=== PATIENT | male | born 1975 | race Two or more races ===

== ENCOUNTER 2016-11-26 08:49 | Emergency (ER) | payer MEDICAID ==
[~2016-11-26] VITALS: Ht 180.3 cm; Wt 99.3 kg
[2016-11-26] MEDS ORDERED: KETOROLAC TROMETH 30 MG/ML 1ML VIAL IV ONE (09:30)
[2016-11-26] MEDS ORDERED: SODIUM CHLORIDE 0.9% 1,000 ML IVB ONE (09:30)
[2016-11-26] MEDS ORDERED: PROMETHAZINE HCL 25 MG/ML 1ML IV PRN (09:30)
[2016-11-26 09:39] LABS: Basophils # (auto) 0 uL; Basophils % (auto) 0.3 % (0.0-2.0); CONDITION Y; Eosinophils # (auto) 0.2 uL; Eosinophils % (auto) 1.6 % (0.0-7.0); Hematocrit 45.4 % (41.0-53.0); Hemoglobin 15.6 g/dL (13.5-17.5); Lymphocytes # (auto) 1.3 uL; Lymphocytes % (auto) 11.6 % (10.0-50.0); Mean Corpuscular Hemoglobin 32.8 pg (28.0-32.0); Mean Corpuscular Hgb Conc. 34.4 g/dL (32.0-36.0); Mean Corpuscular Volume 95.1 fL (80.0-100.0); Monocytes # (auto) 0.8 uL; Monocytes % (auto) 6.6 % (0.0-12.0); Neutrophils # (auto) 9.3 uL; Neutrophils % (auto) 79.9 % (37.0-80.0); Platelet Count (auto) 283 10^3/uL (140-450); Red Cell Distribution Width 13.3 % (11.6-16.0); White Blood Cell 11.6 10^3/uL (4.4-10.8)
[2016-11-26 09:56] LABS: Urine Bilirubin Negative (Negative); Urine Blood Negative /uL (Negative); Urine Color Yellow (Yellow); Urine Glucose Normal (Normal); Urine Ketone TRACE (Negative); Urine Mucus MODERATE (None Seen); Urine Nitrite Negative (Negative); Urine RBC <1 /hpf (0 - 3)
[2016-11-26 10:06] LABS: Albumin 3.7 g/dL (3.4-5.0); BUN/Creatinine Ratio 13.3; Calcium 8.9 mg/dL (8.5-10.1); Magnesium 2.2 mg/dL (1.6-2.6); Potassium 3.5 mmol/L (3.5-5.1)
[2016-11-26 10:09] LABS: Bilirubin, Total 0.8 mg/dL (0.2-1.0); Total Protein 7.4 g/dL (6.4-8.2)
[2016-11-26 10:24] VITALS: BP 156/95
== END 2016-11-26 12:19 | disposition home or self-care (01) ==
LOC: ER 08:49
DX: K80.50 Calculus of bile duct without cholangitis or cholecystitis without obstruction (principal); R73.9 Hyperglycemia, unspecified; I10 Essential (primary) hypertension; E78.5 Hyperlipidemia, unspecified
CPT/HCPCS: 36415; 71020; 74176; 80053; 81001; 83690; 83735; 85025; 94761; 96361; 96374; 96375; 99285; J1885; J2550; J7030

== ENCOUNTER 2016-12-12 19:07 | Emergency (ER) | payer MEDICAID ==
[~2016-12-12] VITALS: Ht 172.7 cm; Wt 95.3 kg
[2016-12-12 23:05] VITALS: BP 136/92
== END 2016-12-12 23:02 | disposition home or self-care (01) ==
LOC: EDBD 19:07 → ER 19:07
DX: S80.01XA Contusion of right knee, initial encounter (principal); M79.1 Myalgia; E78.5 Hyperlipidemia, unspecified; I10 Essential (primary) hypertension; V49.49XA Driver injured in collision with other motor vehicles in traffic accident, initial encounter; Y93.89 Activity, other specified; Y99.8 Other external cause status; Y92.410 Unspecified street and highway as the place of occurrence of the external cause
CPT/HCPCS: 73562

== ENCOUNTER 2017-05-11 10:24 | Emergency (ER) | payer MEDICAID ==
[~2017-05-11] VITALS: Ht 180.3 cm; Wt 104.3 kg
[2017-05-11 11:03] LABS: Basophils # (auto) 0 uL; Basophils % (auto) 0.5 % (0.0-2.0); Eosinophils # (auto) 0.2 uL; Eosinophils % (auto) 2.4 % (0.0-7.0); Hematocrit 48.8 % (41.0-53.0); Hemoglobin 16.5 g/dL (13.5-17.5); Lymphocytes # (auto) 1.6 uL; Lymphocytes % (auto) 20.8 % (10.0-50.0); Mean Corpuscular Hemoglobin 32.3 pg (28.0-32.0); Mean Corpuscular Hgb Conc. 33.8 g/dL (32.0-36.0); Mean Corpuscular Volume 95.4 fL (80.0-100.0); Monocytes # (auto) 0.6 uL; Monocytes % (auto) 7.9 % (0.0-12.0); Neutrophils # (auto) 5.1 uL; Neutrophils % (auto) 68.4 % (37.0-80.0); Platelet Count (auto) 249 10^3/uL (140-450); Red Blood Cells 5.11 10^6/uL (4.5-5.90); Red Cell Distribution Width 13.6 % (11.8-14.3); White Blood Cell 7.4 10^3/uL (4.4-10.8)
[2017-05-11] MEDS ORDERED: IOHEXOL 300 MG/ML 100ML BOTTLE IJ ONE (11:22)
[2017-05-11 11:25] LABS: Albumin 4.2 g/dL (3.4-5.0); Calcium 9.5 mg/dL (8.5-10.1); Potassium 3.8 mmol/L (3.5-5.1)
[2017-05-11 11:28] LABS: BUN/Creatinine Ratio 11.6; Bilirubin, Total 0.6 mg/dL (0.2-1.0); Total Protein 7.8 g/dL (6.4-8.2)
[2017-05-11 12:50] VITALS: BP 148/101
== END 2017-05-11 13:12 | disposition home or self-care (01) ==
LOC: ER 10:24
DX: R10.31 Right lower quadrant pain (principal); E78.00 Pure hypercholesterolemia, unspecified; I10 Essential (primary) hypertension
CPT/HCPCS: 36415; 74177; 80053; 85025; 94761; 99285; Q9967

== ENCOUNTER 2021-11-23 11:29 | Emergency (ER) | payer MEDICAID ==
[~2021-11-23] VITALS: Ht 180.3 cm; Wt 95.5 kg
[2021-11-23 11:59] VITALS: BP 179/123
[2021-11-23] MEDS ORDERED: LISINOPRIL 20 MG TAB PO ONE (12:15)
== END 2021-11-23 15:57 | disposition left against medical advice (07) ==
LOC: ER 11:29
DX: I10 Essential (primary) hypertension (principal); Z53.21 Procedure and treatment not carried out due to patient leaving prior to being seen by health care provider

== ENCOUNTER 2022-03-13 09:28 | Emergency (ER) | payer MEDICAID ==
[~2022-03-13] VITALS: Ht 180.3 cm; Wt 90.7 kg
[2022-03-13] MEDS ORDERED: IPRATROPIUM BROM 0.5 MG/2.5ML INH SOL NEB ONE (12:30)
[2022-03-13] MEDS ORDERED: ALBUTEROL SULF 2.5 MG/0.5ML(0.5%) NEB SOLN NEB ONE (12:30)
[2022-03-13 12:53] VITALS: BP 157/112
[2022-03-13] MEDS ORDERED: methylPREDNISolone SOD SUCC 125 MG/2 ML VL IM ONE (13:00)
[2022-03-13] MEDS ORDERED: IPRATROPIUM BROM 0.5 MG/2.5ML INH SOL ONE (13:28)
[2022-03-13] MEDS ORDERED: ALBUTEROL MEDNEB 2.5 mg/3ml NEB ONE (13:28)
[2022-03-13 13:45] LABS: Basophils # (auto) 0 10 ^3/uL (0-0.2); Basophils % (auto) 0.5 % (0.0-2.0); Eosinophils # (auto) 0.1 10 ^3/uL (0-0.8); Eosinophils % (auto) 1.7 % (0.0-7.0); Hematocrit 49.4 % (41.0-53.0); Hemoglobin 16.7 g/dL (13.5-17.5); Lymphocytes # (auto) 1.3 10 ^3/uL (0.4-5.4); Lymphocytes % (auto) 16.6 % (10.0-50.0); Mean Corpuscular Hemoglobin 31.9 pg (28.0-32.0); Mean Corpuscular Hgb Conc. 33.8 g/dL (32.0-36.0); Mean Corpuscular Volume 94.1 fL (80.0-100.0); Monocytes # (auto) 0.8 10 ^3/uL (0-1.3); Monocytes % (auto) 9.9 % (0.0-12.0); Neutrophils # (auto) 5.7 10 ^3/uL (1.6-8.6); Neutrophils % (auto) 71.3 % (37.0-80.0); Nucleated Red Blood Cells % 0.1 %; Red Blood Cells 5.25 10^6/uL (4.5-5.90); Red Cell Distribution Width 13.2 % (11.8-14.3); White Blood Cell 8.1 10^3/uL (4.4-10.8)
[2022-03-13 14:09] LABS: Potassium 3.4 mmol/L (3.5-5.1)
[2022-03-13 14:17] LABS: Albumin 3.6 g/dL (3.4-5.0); BUN/Creatinine Ratio 11.3; Bilirubin, Total 0.8 mg/dL (0.2-1.0); Calcium 9.2 mg/dL (8.5-10.1)
[2022-03-13] MEDS ORDERED: PRED20TA2 PO (14:49)
[2022-03-13] MEDS ORDERED: POTASSIUM CHL 20 Meq TABLET PO ONE (15:00)
== END 2022-03-13 15:01 | disposition home or self-care (01) ==
LOC: ER 09:28
DX: J40 Bronchitis, not specified as acute or chronic (principal); E87.6 Hypokalemia; E78.5 Hyperlipidemia, unspecified; I10 Essential (primary) hypertension; Z20.822 Contact with and (suspected) exposure to COVID-19
CPT/HCPCS: 36415; 71045; 80053; 84484; 85025; 85379; 87426; 87804; 93005; 94640; 96372; 99285; J2930; J7644

== ENCOUNTER 2023-01-17 10:53 | Inpatient (IN) | payer MEDICAID ==
[~2023-01-17] VITALS: Ht 180.3 cm; Wt 98.9 kg
[~2023-01-17 10:53] MED LIST: PRED20TA2 PO
[2023-01-17] MEDS ORDERED: LABETALOL HCL 5 MG/ML 4ML SYRINGE IV ONE ×3 (11:30→18:30)
[2023-01-17 11:43] LABS: Basophils # (auto) 0.1 10 ^3/uL (0-0.2); Basophils % (auto) 0.9 % (0.0-2.0); Eosinophils # (auto) 0.1 10 ^3/uL (0-0.8); Eosinophils % (auto) 1.3 % (0.0-7.0); Hematocrit 46.2 % (41.0-53.0); Lymphocytes # (auto) 1.6 10 ^3/uL (0.4-5.4); Lymphocytes % (auto) 17.3 % (10.0-50.0); Mean Corpuscular Hemoglobin 32.4 pg (28.0-32.0); Mean Corpuscular Hgb Conc. 34.6 g/dL (32.0-36.0); Mean Corpuscular Volume 93.8 fL (80.0-100.0); Monocytes # (auto) 0.6 10 ^3/uL (0-1.3); Monocytes % (auto) 6.2 % (0.0-12.0); Neutrophils % (auto) 74.3 % (37.0-80.0); Red Blood Cells 4.93 10^6/uL (4.5-5.90); Red Cell Distribution Width 14.4 % (11.8-14.3); White Blood Cell 9.5 10^3/uL (4.4-10.8)
[2023-01-17 12:01] LABS: Alanine Aminotransferase 37 U/L (7-40); Alkaline Phosphatase 155 U/L (46-116); Anion Gap 6 (5-15); Aspartate Aminotransferase 14 U/L (13-40); BUN/Creatinine Ratio 12.5 (10.0-20.0); Blood Urea Nitrogen 12 mg/dL (9-23); Calcium 9.5 mg/dL (8.5-10.1); Carbon Dioxide 30 mmol/L (20-30); Chloride 101 mmol/L (98-107); Glucose 278 mg/dL (74-106); Potassium 3.2 mmol/L (3.5-5.1); Sodium 137 mmol/L (136-145)
[2023-01-17 12:02] LABS: Bilirubin, Total 0.3 mg/dL (0.2-1.0); Total Protein 6.6 g/dL (5.7-8.2)
[2023-01-17 12:06] LABS: INR 0.97 (0.9-1.15); Partial Thromboplastin Time 28.7 SEC (24.5-34.5); Prothrombin Time 10.2 sec (9.3-11.8)
[2023-01-17 12:14] LABS: Magnesium 1.9 mg/dL (1.6-2.6)
[2023-01-17 13:00] VITALS: PULSE 90; RESP 20; O2SAT 96
[2023-01-17 15:08] LABS: Urine Bacteria FEW /hpf (None Seen); Urine Blood Negative /uL (Negative); Urine Clarity HAZY (Clear); Urine Color Yellow (Yellow); Urine Mucus FEW (None Seen); Urine Protein, UAD 1+ (Negative); Urine Specific Gravity 1.011 (1.001-1.035); Urine Urobilinogen Normal (Negative); Urine WBC 149 /hpf (0 - 3)
[2023-01-17 15:22] LABS: Amphetamine Screen, Urine Neg (NEGATIVE); Barbiturate Scree,Urine Neg (NEGATIVE); Benzodiazephine Screen, Urine Neg (NEGATIVE)
[2023-01-17 15:23] LABS: Cannabinoid Screen, Urine Neg (NEGATIVE); Cocaine Screen, Urine Neg (NEGATIVE); Opiate Scree,Urine Neg (NEGATIVE); Phencyclidine Screen, Urine Neg (NEGATIVE)
[2023-01-17] MEDS ORDERED: cefTRIAXone 1GM/50ML D5W 50 ML IV ONE (16:45)
[2023-01-17 19:30] VITALS: PULSE 76; RESP 16; O2SAT 96
[2023-01-17] MEDS ORDERED: MECLIZINE HCL 25 MG TAB PO ONE (20:15)
[2023-01-17] MEDS ORDERED: SODIUM CHLORIDE 0.9% 500 ML IV ONE (20:30)
[2023-01-17] MEDS ORDERED: NITROGLYCERIN 0.4 MG SL TAB SL PRN (20:45)
[2023-01-17] MEDS ORDERED: MORPHINE SULFATE INJ 2 MG/ml SYRG IV PRN (20:45)
[2023-01-17] MEDS ORDERED: ONDANSETRON HCL 4 MG/2 ML VIAL IV PRN (20:45)
[2023-01-17] MEDS: METOPROLOL TARTRATE 25 MG TAB PO SCH (22:04)
[2023-01-17] MEDS: hydrALAZINE HCL 20 MG/ML VL IV PRN (22:05)
[2023-01-18 06:59] LABS: Chloride 103 mmol/L (98-107); Potassium 3.1 mmol/L (3.5-5.1); Sodium 139 mmol/L (136-145)
[2023-01-18 07:00] LABS: Anion Gap 7 (5-15); Calcium 9.3 mg/dL (8.7-10.4); Carbon Dioxide 29 mmol/L (20-30)
[2023-01-18 07:05] LABS: BUN/Creatinine Ratio 10.1 (10.0-20.0); Blood Urea Nitrogen 9 mg/dL (9-23)
[2023-01-18 07:58] LABS: Glucose 132 mg/dL (74-106)
[2023-01-18 08:00] VITALS: PULSE 80; RESP 20; O2SAT 96
[2023-01-18] MEDS ORDERED: KETOROLAC TROMETH 30 MG/ML 1ML VIAL IV ONE (08:45)
[2023-01-18] MEDS ORDERED: POTASSIUM EFFERVESENT TAB 25 MEQ PO ONE (09:15)
[2023-01-18] MEDS ORDERED: KETOROLAC TROMETH 60MG/2ML VIAL IV ONE (09:30)
[2023-01-18] MEDS: cefTRIAXone 1GM/50ML D5W 50 ML IV SCH (09:35)
[2023-01-18] MEDS: METOPROLOL TARTRATE 25 MG TAB PO SCH ×2 (11:06→22:07)
[2023-01-18] MEDS: hydrALAZINE HCL 20 MG/ML VL IV PRN (20:43)
[2023-01-18 21:16] VITALS: RESP 17
[2023-01-18 22:00] VITALS: BP 159/90; PULSE 92; RESP 19; TEMP 98; O2SAT 96
[2023-01-19] VITALS (7 sets, daily range): BP systolic 144–165; BP diastolic 83–109; PULSE 86–103; RESP 18–21; TEMP 97.9–98.4; O2SAT 95–98
[2023-01-19] MEDS: hydrALAZINE HCL 20 MG/ML VL IV PRN ×2 (05:47→17:55)
[2023-01-19] MEDS: ACETAMINOPHEN 325 MG TAB PO PRN ×2 (05:53→22:05)
[2023-01-19] MEDS: METOPROLOL TARTRATE 25 MG TAB PO SCH ×2 (09:30→22:03)
[2023-01-19] MEDS: cefTRIAXone 1GM/50ML D5W 50 ML IV SCH (09:31)
[2023-01-20] VITALS (7 sets, daily range): BP systolic 149–157; BP diastolic 92–108; PULSE 68–92; RESP 16–21; TEMP 97.6–98.1; O2SAT 96–98
[2023-01-20] MEDS: cefTRIAXone 1GM/50ML D5W 50 ML IV SCH (08:45)
[2023-01-20] MEDS: METOPROLOL TARTRATE 25 MG TAB PO SCH ×2 (08:46→22:22)
[2023-01-20] MEDS: DOCUSATE SOD 100 MG CAP PO SCH ×2 (10:00→22:21)
[2023-01-20] MEDS ORDERED: LOSARTAN POTASSIUM 50 MG TAB PO SCH (10:00)
[2023-01-20] MEDS ORDERED: DEXTROSE (50%) 50ML SYRG IV PRN (16:00)
[2023-01-20] MEDS ORDERED: amLODIPine BESYLATE 5 MG TAB PO ONE (16:00)
[2023-01-20] MEDS: ACCU-CHEK COMFORT CURVE STRIP VI SCH ×2 (17:01→22:25)
[2023-01-20] MEDS: InsuLIN REG 1unit/0.01ml Soln (100units/ml) SC SCH ×2 (17:38→22:25)
[2023-01-20] MEDS: TEMAZEPAM 15 MG CAP PO PRN (22:19)
[2023-01-21 05:00] VITALS: BP 160/98; PULSE 84; RESP 16; TEMP 98.1; O2SAT 96
[2023-01-21 05:49] LABS: Basophils # (auto) 0.1 10 ^3/uL (0-0.2); Basophils % (auto) 0.5 % (0.0-2.0); Eosinophils # (auto) 0.2 10 ^3/uL (0-0.8); Eosinophils % (auto) 2.3 % (0.0-7.0); Hematocrit 46.9 % (41.0-53.0); Hemoglobin 15.8 g/dL (13.5-17.5); Lymphocytes % (auto) 20.7 % (10.0-50.0); Mean Corpuscular Hemoglobin 32.2 pg (28.0-32.0); Mean Corpuscular Hgb Conc. 33.8 g/dL (32.0-36.0); Mean Corpuscular Volume 95.2 fL (80.0-100.0); Monocytes # (auto) 0.9 10 ^3/uL (0-1.3); Monocytes % (auto) 9.7 % (0.0-12.0); Neutrophils # (auto) 6.4 10 ^3/uL (1.6-8.6); Neutrophils % (auto) 66.8 % (37.0-80.0); Nucleated Red Blood Cells % 0.1 %; Red Blood Cells 4.92 10^6/uL (4.5-5.90); Red Cell Distribution Width 14.5 % (11.8-14.3); White Blood Cell 9.5 10^3/uL (4.4-10.8)
[2023-01-21 06:02] LABS: Anion Gap 7 (5-15); Carbon Dioxide 27 mmol/L (20-30); Chloride 104 mmol/L (98-107); Potassium 3.6 mmol/L (3.5-5.1); Sodium 138 mmol/L (136-145)
[2023-01-21 06:08] LABS: BUN/Creatinine Ratio 15.7 (10.0-20.0); Blood Urea Nitrogen 13 mg/dL (9-23); Glucose 123 mg/dL (74-106)
[2023-01-21] MEDS: hydrALAZINE HCL 20 MG/ML VL IV PRN (06:08)
[2023-01-21] MEDS: ACCU-CHEK COMFORT CURVE STRIP VI SCH ×4 (06:11→22:11)
[2023-01-21] MEDS: InsuLIN REG 1unit/0.01ml Soln (100units/ml) SC SCH ×4 (06:11→22:11)
[2023-01-21 08:00] VITALS: BP 152/94; PULSE 105; PULSE 98; RESP 18; TEMP 98.7; O2SAT 98
[2023-01-21] MEDS: DOCUSATE SOD 100 MG CAP PO SCH ×2 (09:00→21:58)
[2023-01-21] MEDS: cefTRIAXone 1GM/50ML D5W 50 ML IV SCH (09:00)
[2023-01-21] MEDS: METOPROLOL TARTRATE 25 MG TAB PO SCH ×2 (09:00→21:56)
[2023-01-21] MEDS: LOSARTAN POTASSIUM 50 MG TAB PO SCH (09:01)
[2023-01-21 13:00] VITALS: BP 120/72; PULSE 91; RESP 20; TEMP 98.6; O2SAT 100
[2023-01-21 17:00] VITALS: BP 132/77; PULSE 64; PULSE 95; RESP 18; RESP 22; TEMP 98.3; TEMP 98.4; O2SAT 95; O2SAT 98
[2023-01-21 20:00] VITALS: PULSE 85; RESP 18
[2023-01-21] MEDS: TEMAZEPAM 15 MG CAP PO PRN (21:57)
[2023-01-21 23:21] VITALS: BP 114/68; PULSE 71; RESP 16; TEMP 98.9; O2SAT 95
[2023-01-22 05:09] VITALS: BP 117/65; PULSE 80; RESP 20; TEMP 98.3; O2SAT 97
[2023-01-22] MEDS: ACCU-CHEK COMFORT CURVE STRIP VI SCH (06:19)
[2023-01-22] MEDS: InsuLIN REG 1unit/0.01ml Soln (100units/ml) SC SCH (06:20)
[2023-01-22 08:00] VITALS: PULSE 82; PULSE 95; RESP 16
[2023-01-22] MEDS: cefTRIAXone 1GM/50ML D5W 50 ML IV SCH (08:41)
[2023-01-22] MEDS: METOPROLOL TARTRATE 25 MG TAB PO SCH (08:50)
[2023-01-22] MEDS: LOSARTAN POTASSIUM 50 MG TAB PO SCH (08:50)
[2023-01-22] MEDS: DOCUSATE SOD 100 MG CAP PO SCH (08:50)
[2023-01-22 09:00] VITALS: BP 147/103
== END 2023-01-22 11:45 | disposition left against medical advice (07) | DRG 199 ==
LOC: ER 10:53 → TELE 20:43 → TELE-CENTR 01-18 21:11
PROVIDERS: ADMIT Internal Medicine; ATTEND Internal Medicine
DX: I16.0 Hypertensive urgency (principal); E11.65 Type 2 diabetes mellitus with hyperglycemia; N39.0 Urinary tract infection, site not specified; E78.5 Hyperlipidemia, unspecified; I10 Essential (primary) hypertension; I16.9 Hypertensive crisis, unspecified; Z53.21 Procedure and treatment not carried out due to patient leaving prior to being seen by health care provider; K59.00 Constipation, unspecified
CPT/HCPCS: 36415; 70450; 71045; 74176; 80048; 80053; 80307; 81001; 82962; 83036; 83605; 83735; 84484; 85025; 85610; 85730; 87040; 93005; 96365; G0378; J0696; J1815; J1885; J3490

== ENCOUNTER 2023-10-07 11:32 | Emergency (ER) | payer MEDICAID ==
[~2023-10-07] VITALS: Ht 180.3 cm; Wt 92.9 kg
[2023-10-07 12:20] LABS: Basophils # (auto) 0 10 ^3/uL (0-0.2); Basophils % (auto) 0.4 % (0.0-2.0); Eosinophils # (auto) 0.1 10 ^3/uL (0-0.8); Eosinophils % (auto) 0.9 % (0.0-7.0); Hematocrit 44.3 % (41.0-53.0); Hemoglobin 15.1 g/dL (13.5-17.5); Lymphocytes # (auto) 1.7 10 ^3/uL (0.4-5.4); Lymphocytes % (auto) 13.3 % (10.0-50.0); Mean Corpuscular Hemoglobin 32.1 pg (28.0-32.0); Mean Corpuscular Hgb Conc. 34.2 g/dL (32.0-36.0); Mean Corpuscular Volume 93.8 fL (80.0-100.0); Monocytes # (auto) 1.1 10 ^3/uL (0-1.3); Monocytes % (auto) 8.8 % (0.0-12.0); Neutrophils # (auto) 9.6 10 ^3/uL (1.6-8.6); Neutrophils % (auto) 76.6 % (37.0-80.0); Red Blood Cells 4.72 10^6/uL (4.5-5.90); White Blood Cell 12.5 10^3/uL (4.4-10.8)
[2023-10-07 12:25] LABS: Chloride 104 mmol/L (98-107); Potassium 2.8 mmol/L (3.5-5.1); Sodium 137 mmol/L (136-145)
[2023-10-07 12:26] LABS: Anion Gap 6 (5-15); Calcium 9.6 mg/dL (8.5-10.1); Carbon Dioxide 27 mmol/L (20-30)
[2023-10-07 12:31] LABS: Blood Urea Nitrogen 14 mg/dL (9-23); Glucose 193 mg/dL (74-106)
[2023-10-07 13:05] LABS: Erythrocyte Sedimentation Rate 14 mm/hr (0-20)
[2023-10-07 13:26] VITALS: BP 134/85; PULSE 93; RESP 16; TEMP 98.3; O2SAT 99
[2023-10-07] MEDS ORDERED: CLIN1CAP70 PO (14:18)
== END 2023-10-07 14:34 | disposition home or self-care (01) ==
LOC: ER 11:32
DX: L03.113 Cellulitis of right upper limb (principal); D72.829 Elevated white blood cell count, unspecified; I10 Essential (primary) hypertension; E78.5 Hyperlipidemia, unspecified; Z88.1 Allergy status to other antibiotic agents
CPT/HCPCS: 36415; 73200; 80048; 85025; 85652